=== PATIENT | female | born 1985 | race Caucasian/White ===

== ENCOUNTER → 2021-04-12 09:28 | Outpatient (CLI) | payer OTHER, SELFPAY ==
[2021-04-12 10:07] LABS: Specimen Label Y
== END ==
PROVIDERS: PCP Family Medicine; Referring Provider Specialist; Visit Provider Specialist
DX: O09.521 Supervision of elderly multigravida, first trimester (principal)
CPT/HCPCS: 36415

== ENCOUNTER → 2021-06-23 10:50 | Outpatient (CLI) | payer OTHER, SELFPAY ==
--- NOTE | 2021-06-23 10:54 | DI.US.S_ITS ---
PROCEDURE: US OB >= 14 WEEKS FETUS INDICATIONS: 20 WEEK ANATOMY OUTSIDE/PRIOR DATING DATA: Last menstrual period (LMP): 02/01/2021 LMP-based estimated date of delivery (JAMAL): 11/08/2021. First dating scan (date and location): 04/12/2021. Estimated date of delivery (JAMAL) from first dating scan: 11/02/2021. The calculations are made using the ultrasound JAMAL of 11/02/2021. TECHNIQUE: Real-time scanning was performed of the fetus, with image documentation and biometric measurements. COMPARISON: [facility], , US OB <= 14 WEEKS FETUS, 04/12/2021, 8:57. FINDINGS: General: A single living intrauterine gestation is present. Presentation: Transverse. Placenta: Placental position is anterior , without previa. Amniotic fluid index: 15.2 cm, normal range is 5-24 cm. heart rate: 147 beats per minute. Maternal cervical canal: 5.8 cm long. Normal lower limit is 2.5 cm. biometrics: Biparietal diameter: 22 weeks 0 days Head circumference: 21 weeks 4 days Abdominal circumference: 21 weeks 6 days Femur length: 21 weeks 6 days Clinically estimated gestational age: 21 weeks 1 day Composite gestational age from present scan: 21 weeks 6 days Estimated weight and percentile: 455 g; 81st percentile. Anatomic survey: Neuro: Ventricles are non-dilated at less than 10 mm. Cisterna magna is normal at 3-11 mm. Cerebellum is normal in size and morphology. Nuchal skin fold: Normal at less than 6 mm between 14-21 weeks gestational age. Face: Nose and lips, facial profile are normal. Spine: No evidence for spina bifida. Heart: 4-chambered heart is present, with normal ventricular outflow tracts. Diaphragm: Diaphragm is intact. Stomach: Left-sided stomach is present. Kidneys: No hydronephrosis. Normal is less than 5 mm in 2nd trimester, less than 7 mm in 3rd trimester. Cord: 3-vessel cord has orthotopic insertion. Bladder: Normal in size. Extremities: All 4 extremities identified. IMPRESSION: 1. Single living IUP redemonstrated and interval growth is normal. 2. Normal anatomic survey. We strive to produce accurate, complete, and clear reports of imaging services. To assist us in improving patient care, this report was composed using standard report templates and voice recognition software. Therefore, it may contain abnormal punctuation, insertions and/or omissions. Occasional wrong-word or sound-alike substitutions may occur. Though we review the report and make efforts to correct it, we do recommend that the report be read carefully in proper context to recognize any text inaccuracies. Dictated by: Anthony MONACO Interpreted: Sue Mosqueda MD on 06/23/2021 at 12:09 Transcribed by: CRISTOFER on 06/23/2021 at 12:10 Approved by: Sue Mosqueda MD, PhD on 06/23/2021 at 12:42
[2021-06-23 12:55] LABS: Appearance Urine UA CLEAR; Bilirubin Urine UA NEGATIVE (NEGATIVE); Color Urine UA YELLOW; Glucose Urine UA NEGATIVE (Negative); Ketones Urine UA NEGATIVE (NEGATIVE); Leukocyte Esterase Urine UA NEGATIVE (NEGATIVE); Nitrite Urine UA NEGATIVE (Negative); Occult Blood Urine UA TRACE-INTACT (Negative); Protein Urine UA NEGATIVE (Negative); Specific Gravity Urine UA <=1.005 (1.000-1.035); Urobilinogen Urine UA 0.2 E.U./dL (0.2)
== END ==
PROVIDERS: PCP Family Medicine; Referring Provider Specialist; Visit Provider Specialist
DX: Z34.82 Encounter for supervision of other normal pregnancy, second trimester (principal); Z3A.21 21 weeks gestation of pregnancy
CPT/HCPCS: 36415; 76811; 81003

== ENCOUNTER → 2021-10-12 10:37 | Outpatient (CLI) | payer OTHER, SELFPAY ==
[2021-10-13 08:00] LABS: Strep Grp B PCR POS for Grp B Strep
== END ==
PROVIDERS: PCP Family Medicine; Visit Provider Obstetrics & Gynecology
DX: Z34.82 Encounter for supervision of other normal pregnancy, second trimester (principal); Z3A.36 36 weeks gestation of pregnancy
CPT/HCPCS: 87653

== ENCOUNTER 2021-10-12 11:20 | Outpatient (CLI) | payer OTHER, SELFPAY | END 2021-10-12 12:03 | disposition home or self-care (01) | LOC: LABOR 12:08 → OB 10-18 08:26 | PROVIDERS: PCP Family Medicine; Referring Provider Obstetrics & Gynecology; Visit Provider Obstetrics & Gynecology | DX: O09.523 Supervision of elderly multigravida, third trimester (principal); Z3A.36 36 weeks gestation of pregnancy | CPT/HCPCS: 59025; 87653; G0378; G0379 ==

== ENCOUNTER 2021-10-19 11:10 | Outpatient (CLI) | payer OTHER, SELFPAY ==
[2021-10-19 11:52] VITALS: BP 122/60; PULSE 69; RESP 20; TEMP 36.7
== END 2021-10-19 11:55 | disposition home or self-care (01) ==
LOC: OB 10-20 14:25
PROVIDERS: PCP Family Medicine; Referring Provider Obstetrics & Gynecology; Visit Provider Obstetrics & Gynecology
DX: O43.893 Other placental disorders, third trimester (principal); Z3A.37 37 weeks gestation of pregnancy
CPT/HCPCS: 59025; G0378; G0379

== ENCOUNTER 2021-10-26 11:12 | Outpatient (CLI) | payer OTHER, SELFPAY ==
[2021-10-26 12:08] VITALS: BP 119/58; PULSE 76; RESP 20; TEMP 37.4
== END 2021-10-26 11:55 | disposition home or self-care (01) ==
LOC: LABOR 11:18 → OB 10-27 08:23
PROVIDERS: PCP Family Medicine; Referring Provider Obstetrics & Gynecology; Visit Provider Obstetrics & Gynecology
DX: O43.893 Other placental disorders, third trimester (principal); Z3A.38 38 weeks gestation of pregnancy
CPT/HCPCS: 59025; G0378; G0379

== ENCOUNTER 2021-11-01 19:13 | Inpatient (IN) | payer OTHER, SELFPAY ==
[2021-11-01 19:28] VITALS: BP 140/73
[2021-11-01 20:23] LABS: Add Manual Diff / Slide Review NO; Basophils Absolute Auto 100 /uL (0-100); Basophils Percent Auto 0.5 % (0-2); Eosinophils Absolute Auto 200 /uL (0-450); Eosinophils Percent Auto 2.1 % (2-4); Hematocrit 35.5 % (36-46); Hemoglobin 11.9 g/dL (12.0-16.0); Lymphocytes Absolute Auto 1900 /uL (1100-4500); Lymphocytes Percent Auto 20.1 % (25-40); Mean Corpuscular HGB Conc 33.6 % (30-36); Mean Corpuscular Hemoglobin 28.1 PG (26-34); Mean Corpuscular Volume 83.7 fL (80-100); Monocytes Absolute Auto 700 /uL (0-900); Monocytes Percent Auto 7.2 % (3-14); Neutrophils Absolute Auto 6700 /uL (1500-7000); Neutrophils Percent Auto 70.1 % (50-75); Platelet Count 199 X10^3/uL (150-400); Red Blood Cell Count 4.24 X10^6/uL (4.0-5.2); Red Cell Distribution Width 14.7 % (11.6-14.8); White Blood Cell Count 9.5 X10^3/uL (4.5-11.0)
[2021-11-01] MEDS: DINOPROSTONE VAG (CERVIDIL) 10 MG VAG (20:39)
[2021-11-01 20:50] LABS: COVID19 -Nasal RAPID Negative (Negative)
--- NOTE | 2021-11-01 21:21 | PM.OBHP.1 ---
OB HPI Date/Time Date of admission: 11/01/21 Date Patient Seen: 10/26/21 History of Present Condition Chief complaint: observation of labor : 2 Para: 0 Estimated Date of Delivery: 11/08/21 Estimated Gestational Age (weeks): 39 Narrative: Masoud Rosenberg is a 36 year old female who is being admitted at 39 weeks for IOL due to early grade 3 placenta. Some placental calcifications were already seen at 28 weeks and by 34 weeks she had a grade 3 placenta. She has had normal growth by ultrasound, estimated weight at 34 weeks was 83 percentile. testing has been normal. without any other complications. She denied headache, scotomata, nausea vomiting or abdominal pain. No leakage of fluid or vaginal bleeding. Feeling occasional contraction. Indications Indication for induction OB: other History of Present care: good care Dating criteria: LMP confirmed by 1st trimester US Obstetrical complications: other ( Early grade 3 placenta) Medical complications: none Preadmission Labs Blood type: A (+) positive -: Antibody screen: negative, GBS status: positive, HBsAG: negative, HIV: negative and RPR/VDLR: negative -: Chlamydia screen: not detected and Gonorrhea screen: not detected -: Rubella: immune and Varicella: immune HCAB: negative PAP: Normal Cell-free DNA: low risk ,male MSAFP normal 1 hr GTT: 135 Prior (ies) History: Sab Evaluation Evaluation Baseline heart rate: 135 Variability: Average (6-10) monitor accelerations: Present Monitor Decelerations: Variable (rare) Category of Tracing: Reactive Status: Category l Dilation: 1-2 cm Effacement: 0-30% station: -2 Position of cervix: posterior Consistency: medium Toussaint score: 3 PFSH Medical History Abnormal Pap smear of cervix (~2004) Acne (~1997) Allergies (~1989) Asthma (~2003) Chicken pox Spontaneous Surgical History History of tonsillectomy (~2000) Family History (Updated 03/27/21 @ 21:49 by Latasha Flores) Father Diabetes mellitus Hypertension Hyperlipidemia Overweight Mother Overweight Hyperlipidemia Grandfather Cancer Grandmother Glaucoma Stroke Skin cancer Grandfather Drowning Grandmother History of heart disease Hypertension Breast cancer Diabetes mellitus Social History marital status: number of children: 0 household members: spouse lives independently: Yes caregiver/support person: Yes housing: house pets and animals: Yes (Cats understood Toxo) education level: college occupational status: employed current occupational exposures/hazards: No seatbelt use: always water heater temp set < 120 deg: Yes working smoke detector in home: Yes fire extinguisher in home: Yes carbon monox detector in home: Yes firearms in home: No do you feel safe at home: Yes Smoking Status: Never smoker second hand exposure: No alcohol intake: former (social prior to ) substance use type: marijuana (Non ) during the past year weight has: remained stable well-balanced diet: daily or most days daily servings fruits/ve-4 caffeine: Yes (Kumbocha) Type(s) of exercise: walking, weight lifting and additional Meds Home Medications and Allergies Home Medications Medication Instructions Recorded Confirmed Type albuterol sulfate 90 mcg/actuation 2 puff inhalation Q6H PRN 12/02/20 11/01/21 History aerosol inhaler Shortness Of Breath Or Wheezing budesonide-formoterol HFA 80 2 puff inhalation Q12H PRN 12/02/20 11/01/21 History mcg-4.5 mcg/actuation aerosol Shortness Of Breath Or Wheezing inhaler (Symbicort) prenat.vits,luis,idq-[id number] 1 tab PO DAILY 04/11/21 11/01/21 History Makers Tripple Nipple Breast Cream See Rx Instructions .Route 09/15/21 11/01/21 Rx .COMPLEX #30 grams Allergies Allergy/AdvReac Type Severity Reaction Status Date / Time Sulfa (Sulfonamide AdvReac Intermediate muscle Verified 11/01/21 20:20 Antibiotics) spasms OB Exam Narrative Exam Narrative: VS: initial BP 143/76, repeat 134/76 Pulse 90 Afebrile HENMT Head: normal to inspection and normocephalic Resp Effort & Inspection: normal respiratory effort Cardio Rate: regular rate Extremities Lower extremity: Yes edema (1+) Uterus Location (Fundal Height): 39 Presentation: vertex Estimated Weight (lbs): 8 Objective Labs Result Diagrams: 11/01/21 20:05 11/01/21 21:40 Labs: Laboratory Results - last 24 hr 11/01/21 11/01/21 20:05 20:05 WBC 9.5 RBC 4.24 Hgb 11.9 L Hct 35.5 L MCV 83.7 MCH 28.1 MCHC 33.6 RDW 14.7 Plt Count 199 Neut % (Auto) 70.1 Lymph % (Auto) 20.1 L [place] % (Auto) 7.2 Eos % (Auto) 2.1 Baso % (Auto) 0.5 Neut # (Auto) 6700 Lymph # (Auto) 1900 [place] # (Auto) 700 Eos # (Auto) 200 Baso # (Auto) 100 SARS-CoV-2 (PCR) Negative Assessment and Plan Assessment and Plan Assessment and Plan narrative: 36 yo @ 39 week EGA being admitted for induction of labor due to early grade 3 placenta. GBS+ screen -Admit. -Routine labs. CMP and urine protein/creatinine ratio added due to initial SBP 140. She was somewhat expectedly anxious arriving for induction per RN Follow-up BP was normal -Overall category 1 EFM, rare quick variable deceleration, overall reassuring EFM andd reactive NST. Cervidil to be placed for induction. -PCN for GBS prophylaxis with labor or SROM
[2021-11-01 21:59] LABS: Uric Acid 4.5 mg/dL (2.5-6.2)
[2021-11-01 22:01] LABS: Alanine Aminotransferase 24 IU/L (<35); Albumin 3.4 g/dL (3.5-5.0); Albumin Globulin Ratio 1.2 (1.0-2.8); Alkaline Phosphatase 96 U/L (38-126); Aspartate Aminotransferase 29 IU/L (14-36); Bilirubin Total 0.2 mg/dL (0.2-1.3); Blood Urea Nitrogen 9 mg/dL (7-17); Calcium 8.9 mg/dL (8.4-10.2); Carbon Dioxide 18 mmol/L (22-32); Chloride 108 mmol/L (98-107); Estimated Glomerular Filt Rate > 60 mL/min (>60); Globulin 2.8 g/dL (1.7-4.1); Glucose 100 mg/dL (70-100); HEMOLYSIS < 15 (0-50); Potassium 3.7 mmol/L (3.4-5.1); Sodium 135 mmol/L (137-145); Total Protein 6.2 g/dL (6.3-8.2)
[2021-11-01 22:41] LABS: Creatinine Urine Random 58.1 mg/dL; Protein (Total) Urine Random 11 mg/dL (0-12); Protein Creatinine Ratio Urine 0.18 GRAM/24H
--- NOTE | 2021-11-02 | PATH_ITS ---
[facility] Accession Number: [id number] . 01 Material submitted: . placenta - PLACENTA . 01 Clinical history: . OBSERVATION OF LABOR . 01 Diagnosis: Placenta: 533.0 gram intact alan placenta with features of maturation consistent with third trimester gestational age and with accentuation of syncytial knots and scattered dystrophic calcification (nonspecific finding). Eccentrically inserted three-vessel umbilical cord; no funisitis, thrombi or true knots. Unremarkable membranes; no chorioamnionitis or features of meconium staining. Placental parenchyma with scattered dystrophic calcifications. No evidence of villitis, infarcts, or features of abruption. MRV 11/07/2021 1304 Local . 01 Electronically signed: . Delores Garcia MD, Pathologist NPI- [id number] . 01 Gross description: . Received in formalin, labeled with the patient's name and placenta, and consists of a 533 g, 27.7 x 14.9 x 2.8 cm, ovoid alan placenta. The membranes are kim and translucent with no discoloration, insert at the margin, and have a point of rupture at the placental disc margin. The umbilical cord segment measures 43.5 cm in length and averages 1.0 cm in diameter with left coiling that has a coiling index of approximately 1.5 twists per 5 cm. The umbilical cord is trivascular with no knots identified and insertion point that is located eccentrically 3.9 cm from the free edge of the placenta. The surface is blue-donohue with normal arborizing vasculature and no areas of discoloration identified. The maternal surface is apparently intact with diffuse kim, granular areas across the surface occupying approximately 20%. Serial sectioning reveal the kim, granular areas on the maternal surface to extend into the parenchyma around the periphery, and this occupies approximately 10% of the cut surface. No additional lesions are identified. Digital Advisor sections are submitted as follows: A1: Membrane roll. A2: Digital Advisor cord. A3: Full-thickness central section. A4: Maternal discoloration with extension into parenchyma. ([id number]) /FRR 11/05/2021 0849 Local . 01 Pathologist provided ICD-10: O43.90 . 01 CPT . 866496 Specimen Comment: A courtesy copy of this report has been sent to [facility] Performed at: 01 [facility] [address] [place] [address], [place], [place] [id number] MD Darren West MD Phone: [phone]
--- NOTE | 2021-11-02 09:49 | PM.OBPNLAB ---
Date/Time Date Patient Seen: 11/02/21 Time Patient Seen: 07:45 Pain Control Pain control: tolerating well Comments: Not feeling any contractions currently with the Cervidil. Cervidil still in place, due for removal at 9:00 a.m.. Currently only having rare contraction, q 20 minutes, with uterine irritability in between. She slept some last night, slept less well due to different bed, not due to contractions. No leakage of fluid or vaginal bleeding. Pelvic Exam Dilation (cm): 1 Effacement (%): 25 station: -2 Amniotic membrane status: Intact Comments: Cervidil left in place after exam. Due for removal in 1 hour. Contractions Contractions on admission: irregular Contraction frequency (min): 20 Contraction pattern: Irregular Contraction phase: Resting Contraction intensity: Mild Status status: Category l Heart Rate Baseline: 130 Monitor Accelerations: Present Monitor Decelerations: Absent Monitor Variability: Moderate Comments: Rare quick variable deceleration overnight, currently no decelerations, category 1. Assessment and Plan Assessment: induction ongoing Comments: Removed Cervidil in 1 hour, when due. After 1 hour, then start trial of Pitocin for induction of labor. I discussed with her trial of Pitocin rather than going to Cytotec for additional cervical ripening, due to its occasional quick variable deceleration overnight. Discussed I'd recommend start with trial of Pitocin since this can be turned off if FHR developed concerning decelerations versus Cytotec pill that is absorbed in the system and then lasts for few hours. She was agreeable to trial of Pitocin. Consent form for induction reviewed and signed.
[2021-11-02] MEDS: OXYTOCIN PREMIX 30 UNIT/500 ML PLAST..BAG IV (09:57)
[2021-11-02] MEDS: LACTATED RINGERS 1,000 ML 100 ML IV ×2 (09:57→18:42)
--- NOTE | 2021-11-02 13:27 | PM.OBPNLAB ---
Date/Time Date Patient Seen: 11/02/21 Time Patient Seen: 13:20 Pain Control Pain control: tolerating well Comments: Feeling crampy since the Pitocin started, nothing strong. Not feeling distinct contractions. She was on the birthing ball, going to try to take a rest, nap currently. Cervix not re-checked at this time with no signs of labor. Preeclamptic labs had been added to her initial OB labs yesterday due to initial SBP on presentation of 140 which then normalized. BP has remained normal. Denies headache, vision changes, abdominal pain besides lower cramping, nausea or vomiting. Pelvic Exam Dilation (cm): 1 Effacement (%): 25 station: -2 Amniotic membrane status: Intact Contractions Contractions on admission: regular Monitor mode: External Pitocin rate (mU/min): 10 Contraction frequency (min): 4 Contraction pattern: Regular (q 3-4 minutes) Contraction phase: Resting Contraction intensity: Mild Status status: Category l Heart Rate Baseline: 130 Monitor Accelerations: Present Monitor Decelerations: Absent Monitor Variability: Moderate Assessment and Plan Assessment: induction ongoing Plan: continuous present management Comments: Continue Pitocin.
--- NOTE | 2021-11-02 18:29 | P.PNOB_ITS ---
Date/Time Date Patient Seen: 11/02/21 Time Patient Seen: 17:50 Pain Control Pain control: tolerating well Comments: becoming mildy uncomfortable with the contractions Pelvic Exam Dilation (cm): 1 Effacement (%): 25 station: -2 Amniotic membrane status: Intact Contractions Monitor mode: External Pitocin rate (mU/min): 16 Contraction frequency (min): 4 Contraction pattern: Regular (q 3-4 minutes) Contraction phase: Resting Contraction intensity: Mild Status status: Category l Monitor Accelerations: Episodic Monitor Decelerations: Episodic Monitor Variability: Moderate Comments: After using bathroom and then lying for the exam, FHR with minimal variability and some recurrent variable decelerations after the exam, improved with position change Assessment and Plan Assessment: induction ongoing Comments: Patient starting to become uncomfortable with contractions. Discussed giving it a few more hours with Pitocin, approximately 2 more hours and see if she develops labor. If no labor then discussed turning Pitocin off and repeat cervi luis ripening overnight. She is agreeable.
--- NOTE | 2021-11-02 20:03 | PM.PREOP ---
Pre-operative Note COVID-19 COVID-19 status: Negative Result date/Date tested (Pos, Neg/Pending): 11/01/21 Criteria for continued procedure: Delay expected to result in less-positive ultimate med/surg outcome Interval Note History & Physical reviewed/Exam performed by Physician: Yes Changes to H&P: No H&P completed within 30 days and has changed as indicated here:: No changes to maternal medical history/exam. heaert rate with recurrent declerations with contractions, Cat 2 EFM remote from delivery. Discussed, consented to C section.
[2021-11-02] MEDS: CEFAZOLIN 1 GM VIAL 2 GM IV (20:21)
--- NOTE | 2021-11-02 20:26 | SUR.OPER ---
Supine on padded OR bed, head on pillow, arms secured on padded arm boards at <90 degrees abduction, legs uncrossed, safety belt at thigh, tape over blanket over lower legs. POPSITION APPROVED BY SURGEON AND ANESTHESIA
--- NOTE | 2021-11-02 21:04 | SUR.OPER ---
LIVE BABY BOY TOB 2040. CORD BLOOD AND BABY TO L&D WITH OB RN AND DAD.
[2021-11-02 22:05] VITALS: BP 114/71; PULSE 70; RESP 16; TEMP 36; O2SAT 97
[2021-11-02 22:10] VITALS: BP 124/83; PULSE 74; RESP 18; O2SAT 98
[2021-11-02 22:15] VITALS: BP 124/76; PULSE 84; RESP 21; O2SAT 97
[2021-11-02 22:20] VITALS: BP 115/71; PULSE 75; RESP 20; TEMP 36.2; O2SAT 98
--- NOTE | 2021-11-02 22:36 | P.PNOB_ITS ---
Date/Time Date Patient Seen: 11/02/21 Time Patient Seen: 19:10 Pain Control Pain control: tolerating well Comments: Only feeling mild contractions Pelvic Exam Dilation (cm): 1 Effacement (%): 50 station: -2 Amniotic membrane status: Intact Contractions Monitor mode: External Contraction frequency (min): 4 Contraction pattern: Regular (q 3-4 minutes) Contraction phase: Resting Contraction intensity: Mild Status status: Category l Monitor Accelerations: Absent Monitor Decelerations: Recurrent Monitor Variability: Moderate Comments: F HR developed recurrent moderate to severe variable deceleration with late component. Position change from sitting to right lateral, without improvement. Patient changed to left lateral Pitocin turned off. Decelerations improved to subtle late decelerations which then resolved. Baseline FHR increased to 170- 180 with minimal variability. With Pitocin off and in left lateral position, FHR recovered with baseline returning to 145 with moderate variability and no further decelerations. Assessment and Plan Assessment: other Plan: Comments: I discuss the repetitive moderate to severe deceleration is with only mild contractions, no active labor. Discussed with heart rate now improved in left lateral position, could give a trial of turning the Pitocin back on in this position, but I suspect decelerations which just recur and she is remote from delivery. Discussed deceleration to have some quality of variable deceleration, cord compression but she is also having late components and some subtle late decelerations this feel the grade 3 placenta is factoring in, with placental insufficiency. Discussed whether cord compression or placental insufficiency as contractions become stronger with a labor contractions, deceleration that would worsen and she is only 1 cm, remote from delivery. Recommend for delivery. She and her briefly discussed this in private, then let me know that they would like to proceed with section. C section procedure reviewed. Surgical risk of bleeding, infection, injury to internal organs including bowel, bladder and risk of injury to baby were reviewed. Written consent obtained. When severe deceleration started, OR was put on hold. OR staff anesthesiologist now notified that we will proceed with section.
--- NOTE | 2021-11-02 22:39 | P.OP_ITS ---
Operative Date/Time/Diagnoses Date of procedure: 11/02/21 Time of procedure: 09:30 Pre-op diagnosis: 39 week , grade 3 placenta, intolerance of labor remote from delivery Post-op diagnosis: same Procedure & Clinicians Procedure: Primary lower transverse section Same procedure as scheduled: Yes Indications: 36-year-old P0 female admitted at 39 weeks for induction of labor due to grade 3 placenta with placental calcifications noted at 28 weeks and progressed to grade 3 placenta. She received Cervidil for cervical ripening and the next morning Pitocin was started for induction. Pitocin gradually increased during the day and EFM category 1, intermittent category 2 with only occasional variable deceleration. However as contractions became mildly uncomfortable, EFM acutely developed repetitive moderate to severe variable decelerations with a late component. Pitocin turned off and changed to left lateral. Deceletions improved to initially subtle late decelerations and then resolved. Discussion held regarding intolerance to even mild contractions, and being remote from delivery, recommend proceeding with due to intolerance of labor. Discussed intolerance to labor likely due to placental insufficiency from the grade 3 placenta, but possibility of cord compression as well. She agreed with proceeding with section for delivery. Surgical procedure and surgical risks reviewed. Written consent obtained. Surgeon: Alexsandra Cantrell Click Yes if Unassisted: Yes Anesthesia Type: Spinal Operative Notes Findings: Vigorous baby boy delivered. with a nuchal cord x1. Less amniotic fluid than expected at delivery. Diffuse placental calcifications. Normal uterus and bilateral tubes and ovaries Closure Type: primary Specimen(s): other (placenta) Estimated Blood Loss (mL): 800 Blood products transfused: none Procedure in detail: IV Fluids: 1200 ml crystalloid Urine output 350ml Description of procedure: She was transferred from the center to the operating room. After an adequate level of spinal anesthesia was obtained, she was placed in the supine position, El catheter was placed and she was prepped and draped in routine sterile fashion. A Pfannenstiel skin incision was made in the lower abdomen and carried down to the level of the fascia. The fascia was incised in the midline and was bluntly extended transversely. The superior and inferior edges of the fascia were elevated and dissected off the rectus muscles with sharp and blunt dissection. The muscles were bluntly in the midline. The parietal peritoneum was elevated, incised and extended bluntly. The bladder blade was placed. The visceral peritoneum was elevated off the lower uterus, incised and the bladder flap was bluntly created. The bladder blade retractor was placed. A transverse incision was made in the lower uterus. The lower uterine segment was thick, consistent with no labor. Part way down into the uterus with the incision she began to have heavy bleeding, likely from a sinus. Each edge of the uterine incision was elevated with Allis clamps and the OR Inez's this suctioned. The incision was further excised down close to the baby and then final entry was made bluntly with a finger. The uterine incision was extended transversely with blunt dissection. A thin layer of membranes was noted over the vertex, were grasped and ruptured with an Allis clamp. Minimal fluid was noted. The head was floating, unengaged. Attempt to deliver the head through the uterine incision with fundal pressure was unsuccessful. A vacuum was placed the vertex and with fundal assistance vertex was minimally brought through the uterine incision and popped off. At this time bandage scissors were used and the uterine incision was further extended transversely. Vacuum was again placed on the vertex and with fundal assistance the infant's head was still not deliver through the uterine incision. Her rectus muscles were tight and coming across the uterine incision as well. Bandage scissors were used and a small cut was made in her rectus muscles transversely, approximately 3 cm noted on later reapproximation. With repeat attempted delivery, with vacuum assistance and fundal pressure the 's vertex was ease through the uterine incision. Vacuum was removed. Nuchal cord x1 was noted which was reduced. Anterior followed by posterior shoulder delivered without difficulty with fundal assistance, followed by the remainder of the body. The infant was vigorous and cried spontaneously. Delayed cord clamping was thus performed. Cord was clamped and cut after 1 minute. was shown to the parents and then handed off to the staff for routine post C- section baby care. Respiratory therapy and OB nurse were present for baby care. Cord blood from the placenta was obtained a specimen. The placenta was expressed with uterine massage. There were calcifications noted throughout the placenta. The uterus was swept clean of adherent clots and membranes. The uterus was closed in 2 layers with 0 Vicryl, the 1st layer being in running locking continuous fashion and the 2nd layer being in a vertical imbricating type fashion. Hemostasis was noted. The tubes and ovaries were inspected and noted to be normal. The paracolic gutters were inspected and wiped free of some minimal residual fluid and blood. The uterine incision was again inspected and hemostasis noted along the incision. The bladder edge peritoneum was inspected and hemostasis was noted. The pelvis was irrigated and suctioned. The muscles were I had incised on her right was reapproximated with 0 Vicryl. There had been some bleeding from the muscle edge and this ceased with the reapproximation. The abdomen was closed. The muscles were reapproximated in th e midline with 2 interrupted sutures of 0 Vicryl. The fascia was closed with running continuous suture of 0 Vicryl. The skin was closed with a subcuticular suture of 4 0 Monocryl. Steri-Strips and sterile Aquacel dressing was placed. She tolerated the procedure well and went to the recovery room in stable condition. Complications: none Post-operative Condition: stable Disposition: PACU Plan for aftercare: transfer to floor
[2021-11-02] MEDS: diphenhydrAMINE 50 MG/ML VIAL 25 MG IV (23:46)
[2021-11-03] MEDS: diphenhydrAMINE 50 MG/ML VIAL 25 MG IV ×3 (02:57→11:27)
[2021-11-03] MEDS: KETOROLAC 30 MG/ML VIAL IV ×3 (04:21→20:48)
[2021-11-03] MEDS: ACETAMINOPHEN 325 MG TABLET 650 MG PO (04:23)
[2021-11-03] MEDS: OXYCODONE/ACETAMINOPHEN 5/325 TABLET 1 TAB PO ×2 (11:27→16:40)
--- NOTE | 2021-11-03 14:00 | PM.OBPN.1 ---
Subjective - OB Subjective Patient comments: pain well controlled, tolerating diet and other (Itching, overall controlled with Benadryl.) baby status: doing well and other (Working on with custom decorating consultant) [place] feeding status: exclusively breast feeding Narrative: Patient was sleeping this morning on morning rounds. Reports she was able to get a few hours of good rest. El pulled at 11:00 a.m., no void yet. Lochia is normal. Date Patient Seen: 11/03/21 Time Patient Seen: 12:40 Exam Vital Signs (past 8 hours): Oxygen Delivery Method Room Air Temp 98.4?F, BP 115/60, pulse 73, respiratory rate 16 Narrative Exam Narrative: General: ?Well-appearing female Abdomen: ?Soft, nontender, nondistended. ?Fundus @U firm, nontender Dressing is dry Extremities: ?1+ pedal edema Objective Labs Result Diagrams: 11/01/21 20:05 11/01/21 21:40 Assessment & Plan Plan day: 1 plan OB: routine postop care Time Spent With Patient Time: Total time spent is greater than 50% in coordination of care (as documented) at patient's floor/unit and/or counseling patient: Time with patient: less than 15 minutes
[2021-11-03] MEDS: BUTORPHANOL 1 MG/ML VIAL 0.5 MG IV (16:39)
[2021-11-03] MEDS: hydrOXYzine pamoate 25 MG CAPSULE PO (21:08)
[2021-11-04] MEDS: IBUPROFEN 600 MG TABLET PO ×2 (03:33→09:05)
[2021-11-04] MEDS: OXYCODONE/ACETAMINOPHEN 5/325 TABLET 1 TAB PO (03:33)
[2021-11-04 06:15] LABS: Add Manual Diff / Slide Review NO; Basophils Absolute Auto 100 /uL (0-100); Basophils Percent Auto 0.6 % (0-2); Eosinophils Absolute Auto 400 /uL (0-450); Eosinophils Percent Auto 3.8 % (2-4); Hematocrit 30.4 % (36-46); Hemoglobin 10.2 g/dL (12.0-16.0); Lymphocytes Absolute Auto 2400 /uL (1100-4500); Lymphocytes Percent Auto 24.2 % (25-40); Mean Corpuscular HGB Conc 33.6 % (30-36); Mean Corpuscular Hemoglobin 28.5 PG (26-34); Mean Corpuscular Volume 84.7 fL (80-100); Monocytes Absolute Auto 900 /uL (0-900); Monocytes Percent Auto 8.9 % (3-14); Neutrophils Absolute Auto 6200 /uL (1500-7000); Neutrophils Percent Auto 62.5 % (50-75); Platelet Count 195 X10^3/uL (150-400); Red Blood Cell Count 3.59 X10^6/uL (4.0-5.2); Red Cell Distribution Width 14.9 % (11.6-14.8); White Blood Cell Count 9.9 X10^3/uL (4.5-11.0)
[2021-11-04] MEDS: DOCUSATE 100 MG CAPSULE 200 MG PO (09:04)
--- NOTE | 2021-11-04 11:46 | P.PNOB_ITS ---
Subjective - OB Subjective Date Patient Seen: 11/04/21 Time Patient Seen: 12:10 Exam Vital Signs (past 8 hours): Oxygen Delivery Method Room Air Temp 98.8F, BP 113/63 Pulse 78 Objective Labs Result Diagrams: 11/04/21 06:08 11/01/21 21:40 Labs: Laboratory Results - last 24 hr 11/04/21 06:08 WBC 9.9 RBC 3.59 L Hgb 10.2 L Hct 30.4 L MCV 84.7 MCH 28.5 MCHC 33.6 RDW 14.9 H Plt Count 195 Neut % (Auto) 62.5 Lymph % (Auto) 24.2 L [place] % (Auto) 8.9 Eos % (Auto) 3.8 Baso % (Auto) 0.6 Neut # (Auto) 6200 Lymph # (Auto) 2400 [place] # (Auto) 900 Eos # (Auto) 400 Baso # (Auto) 100 Assessment & Plan Time Spent With Patient Time: Total time spent is greater than 50% in coordination of care (as documented) at patient's floor/unit and/or counseling patient:
[2021-11-04] MEDS: ACETAMINOPHEN 325 MG TABLET 650 MG PO (13:16)
--- NOTE | 2021-11-04 15:03 | PM.DS.1 ---
History of Present Illness History of Present Illness Date Patient Seen: 11/04/21 Time Patient Seen: 12:30 Chief complaint: induction of labor Narrative: ?36 year old female who is being admitted at 39 weeks for IOL due to early grade 3 placenta.? Some placental calcifications were already seen at 28 weeks and by 34 weeks she had a grade 3 placenta.? She has had normal growth by ultrasound, estimated weight at 34 weeks was 83 percentile.? testing for the grade 3 placenta has been normal. ? without any other complications. Discharge Providers Provider Date of admission: 11/01/21 19:13 Discharge Date: 11/04/21 Primary care physician: Cam Ling DO Consults: 11/02/21 22:56 Consult to Ict Quality Assurance Engineer Routine Comment: Discharge provider: Alexsandra Cantrell MD Summary Hospital Course Discharge Diagnosis: 39 week , delivered by primary section intolerance of labor Hospital Course: Patient was admitted at 39 weeks and underwent cervical ripening with Cervidil. Pitocin was started the next day. As she became mildly uncomfortable with contractions, heart rate began to have moderate to severe deceleration with late component. She was remote from delivery at only 1 cm and section recommended for delivery due to intolerance of even mild contractions. She consented to section. She underwent section without complications. She delivered a vigorous baby boy. She has had a normal postoperative course, meeting all postoperative parameters. Her discomfort is controlled. She had had a lot of diffuse pruritus since shortly after the section due to the Duramorph. After receiving some hydroxyzine last night she reports that the pruritus resolved. Her incisional discomfort is controlled with oxycodone and ibuprofen. she is passing flatus. She is voiding without difficulty. Lochia is normal. is going well. Mother and baby are both doing well and she desires discharge home today. Status at Discharge Cognitive/behavioral status at discharge: oriented Functional status at discharge: independent ambulation Overall status at discharge: patient is progressing back to baseline Time Spent with Patient Time spent: Less than 30 minutes Exam Vital Signs (past 8 hours): Oxygen Delivery Method Room Air Temp 98.8, BP 113/63, Pulse 78 Narrative Exam Narrative: General: Well-appearing female Abdomen: Soft, nontender,except expected madalyn-incisional tendernes, nondistended. Aquacel dressing in place is dry, intact Fundus U-1, firm, nontender Extremities: Trace pedal edema Objective Labs Result Diagrams: 11/04/21 06:08 11/01/21 21:40 Labs: Laboratory Results - last 24 hr 11/04/21 06:08 WBC 9.9 RBC 3.59 L Hgb 10.2 L Hct 30.4 L MCV 84.7 MCH 28.5 MCHC 33.6 RDW 14.9 H Plt Count 195 Neut % (Auto) 62.5 Lymph % (Auto) 24.2 L [place] % (Auto) 8.9 Eos % (Auto) 3.8 Baso % (Auto) 0.6 Neut # (Auto) 6200 Lymph # (Auto) 2400 [place] # (Auto) 900 Eos # (Auto) 400 Baso # (Auto) 100 PFSH Medical History Abnormal Pap smear of cervix (~2004) Acne (~1997) Allergies (~1989) Asthma (~2003) Chicken pox Spontaneous Surgical History History of tonsillectomy (~2000) Family History (Updated 03/27/21 @ 21:49 by Latasha Flores) Father Diabetes mellitus Hypertension Hyperlipidemia Overweight Mother Overweight Hyperlipidemia Grandfather Cancer Grandmother Glaucoma Stroke Skin cancer Grandfather Drowning Grandmother History of heart disease Hypertension Breast cancer Diabetes mellitus Social History marital status: number of children: 0 household members: spouse lives independently: Yes caregiver/support person: Yes housing: house pets and animals: Yes (Cats understood Toxo) education level: college occupational status: employed current occupational exposures/hazards: No seatbelt use: always water heater temp set < 120 deg: Yes working smoke detector in home: Yes fire extinguisher in home: Yes carbon monox detector in home: Yes firearms in home: No do you feel safe at home: Yes Smoking Status: Never smoker second hand exposure: No alcohol intake: former (social prior to ) substance use type: marijuana (Non ) during the past year weight has: remained stable well-balanced diet: daily or most days daily servings fruits/ve-4 caffeine: Yes (Kumedilberto) Type(s) of exercise: walking, weight lifting and additional Discharge Assessment & Plan Assessment and Plan Assessment: POD 2 s/p primary section for intolerance to labor normal postoperative course Plan of Treatment: Discharge home. Appointment in 1 week to remove Aquacel dressing and incision check. Discharge Plan Discharge Plan Patient Disposition: Home Provider Discharge Comment: Pt s/p primary section for delivery for intolerance of labor Discharge orders & Medications Prescriptions: New ibuprofen 600 mg Tablet 600 mg PO Q6HR PRN (Reason: Pain, Mild (1-3)) Qty: 30 1RF Purelan Cream 1 applic topical PRN PRN (Reason: Sore Nipples) Qty: 7 0RF oxycodone 5 mg tablet See Rx Instructions .ROUTE .COMPLEX PRN (Reason: pain) Qty: 20 0RF Rx Instructions: 1 to 2 tabs every 4 to 6 hours as needed for pain docusate sodium 100 mg Capsule 100 mg PO DAILY Qty: 20 0RF Rx Instructions: take 1 to 2 capsules daily while on the oxycodone Continued prenat.vits,luis,[id number] Tablet 1 tab PO DAILY Makers Tripple Nipple Breast Cream See Rx Instructions .ROUTE .COMPLEX Qty: 30 3RF Rx Instructions: Apply to nipples after a feeding up to four times a day. Wipe off before next feeding; albuterol sulfate 90 mcg/actuation HFA aerosol inhaler 2 puff inhalation Q6H PRN (Reason: Shortness Of Breath Or Wheezing) budesonide-formoterol [Symbicort] 80-4.5 mcg/actuation HFA aerosol inhaler 2 puff inhalation Q12H PRN (Reason: Shortness Of Breath Or Wheezing) Follow up/Referrals: Alexsandra Cantrell MD [Physician] - 11/09/21 3:00 pm (Rescheduled appointment to 11/08 at 1345.) Cam Ling DO [Primary Care Provider] - Discharge Health Status Multidrug resistant organism: No MDRO Diet/Activity/Treatments Diet: Regular Activity: nothing in the Vagina for 6 weeks, no tampons, no douching and no intercourse. No heavy lifting for 6 weeks, nothing heavier than the baby and baby carrier. I recommend taking a stool softener daily while you are on the oxycodone, Colace or generic equivalent 1-2 tablets daily. Skin/Wound/Dressing Care Report to your healthcare provider any signs of infection, such as:: chills, fever, increased pain and unusual redness Dressing: Leave dressing on. May shower with the dressing in place. It will be removed in the office in 1 week. Visit Report/Discharge Packet Instructions: DI for , DI for Depression Stand Alone Forms: Discharge: Care Discharge Data Primary Care Provider: Cam Ling
[2021-11-04 18:28] VITALS: BP 115/71; PULSE 75; RESP 20; TEMP 36.2
== END 2021-11-04 16:00 | disposition home or self-care (01) | DRG 788 ==
PROVIDERS: Admitting Provider Obstetrics & Gynecology; PCP Family Medicine; Referring Provider Obstetrics & Gynecology; Visit Provider Obstetrics & Gynecology
PROC: 10D00Z1 Extraction of Products of Conception, Low, Open Approach (ICD-10-PCS; CPT 59514; principal; 2021-11-02 20:00)
DX: O43.893 Other placental disorders, third trimester (principal); O76 Abnormality in fetal heart rate and rhythm complicating labor and delivery; O99.824 Streptococcus B carrier state complicating childbirth; Z3A.39 39 weeks gestation of pregnancy; Z37.0 Single live birth; Z20.822 Contact with and (suspected) exposure to COVID-19
CPT/HCPCS: 36415; 59050; 59200; 59510; 59515; 80053; 82570; 84156; 84550; 85025; 86850; 86900; 86901; 87635; C9803; A9270; G0379; J0595; J0690; J1200; J1885; J2274; J2405; J2590

== ENCOUNTER → 2023-01-16 10:50 | Outpatient (CLI) | payer OTHER, SELFPAY ==
[2023-01-16 14:36] LABS: Urine N gonorrhoeae NOT DETECTED
[2023-01-16 14:37] LABS: Urine Chlamydia NOT DETECTED
== END ==
PROVIDERS: PCP Family Medicine; Visit Provider Obstetrics & Gynecology
DX: Z34.91 Encounter for supervision of normal pregnancy, unspecified, first trimester (principal)
CPT/HCPCS: 87491; 87591

== ENCOUNTER → 2023-02-15 11:01 | Outpatient (CLI) | payer OTHER, SELFPAY ==
[2023-02-15 12:49] LABS: Add Manual Diff / Slide Review NO; Basophils Absolute Auto 0 /uL (0-100); Basophils Percent Auto 0.3 % (0-2); Eosinophils Absolute Auto 200 /uL (0-450); Eosinophils Percent Auto 3.1 % (2-4); Hematocrit 35.9 % (36-46); Hemoglobin 12.3 g/dL (12.0-16.0); Lymphocytes Absolute Auto 1600 /uL (1100-4500); Lymphocytes Percent Auto 19.3 % (25-40); Mean Corpuscular HGB Conc 34.2 % (30-36); Mean Corpuscular Hemoglobin 28.6 PG (26-34); Mean Corpuscular Volume 83.9 fL (80-100); Monocytes Absolute Auto 500 /uL (0-900); Monocytes Percent Auto 5.8 % (3-14); Neutrophils Absolute Auto 5800 /uL (1500-7000); Neutrophils Percent Auto 71.5 % (50-75); Platelet Count 215 X10^3/uL (150-400); Red Blood Cell Count 4.28 X10^6/uL (4.0-5.2); Red Cell Distribution Width 13.8 % (11.6-14.8); White Blood Cell Count 8.1 X10^3/uL (4.5-11.0)
[2023-02-15 18:16] LABS: Hepatitis B Surface Antigen NEGATIVE s/c (NEGATIVE); Rubella Antibody IgG 27.2 IU/mL (>15)
[2023-02-15 18:31] LABS: HIV 1 & 2 Ab/Ag 4th Gen Combo NEGATIVE (NEGATIVE); Hep C Virus Ab w/Reflex Quant NEGATIVE s/c (NEGATIVE)
[2023-02-16 08:44] LABS: Varicella IgG Antibody 2992 index (Immune >165)
[2023-02-17 04:53] LABS: RPR Screen Non Reactive (Non Reactive)
== END ==
PROVIDERS: PCP Family Medicine; Referring Provider Obstetrics & Gynecology; Visit Provider Obstetrics & Gynecology
DX: O09.521 Supervision of elderly multigravida, first trimester (principal); Z34.80 Encounter for supervision of other normal pregnancy, unspecified trimester
CPT/HCPCS: 36415; 80055; 86787; 86803; 86850; 86900; 86901; 87086; 87389

== ENCOUNTER → 2023-03-22 10:01 | Outpatient (CLI) | payer OTHER, SELFPAY ==
[2023-03-24 20:35] LABS: Insulin Dep Diabetes No (.); OSBR Risk 1IN 5748 (.); Results Report (.); Test Results *Screen Negative* (.)
== END ==
PROVIDERS: PCP Family Medicine; Referring Provider Obstetrics & Gynecology; Visit Provider Obstetrics & Gynecology
DX: Z34.82 Encounter for supervision of other normal pregnancy, second trimester (principal); Z3A.18 18 weeks gestation of pregnancy
CPT/HCPCS: 36415; 82105

== ENCOUNTER 2023-07-19 10:58 | Outpatient (CLI) | payer OTHER, SELFPAY ==
--- NOTE | 2023-07-19 11:34 | PM.OBTRLD ---
Visit Information Visit Information Date of evaluation: 07/19/23 Primary OB Provider: Esthela Love Reason for Evaluation: Yes non-stress test non-stress test reason: other (Placenta previa) [facility] Medical History (Updated 06/28/23 @ 01:24 by Rachel Lancaster MD) LGA (large for gestational age) fetus affecting mother, antepartum Placental abnormality in third trimester Spontaneous Abnormal Pap smear of cervix (~2004) Acne (~1997) Chicken pox Surgical History (Updated 01/28/23 @ 22:01 by Rachel Lancaster MD) History of removal of skin mole History of tonsillectomy (~2000) Family History (Updated 01/10/23 @ 08:37 by Tiki Crawley RN) Father Diabetes mellitus Hypertension Hyperlipidemia Overweight Mother Overweight Hyperlipidemia Grandfather Lung cancer Grandmother Glaucoma Stroke Skin cancer Grandfather Drowning Grandmother Hypertension Breast cancer Diabetes mellitus Social History marital status: number of children: 1 household members: spouse and children lives independently: Yes caregiver/support person: Yes housing: house pets and animals: Yes (Cats, will manage litter box) education level: college (bachelor's degree) occupational status: employed (works from home) current occupational exposures/hazards: No special agnes needs: No travel history: recent ([place], [place], planning [place] in May) seatbelt use: always helmet use: No (encouraged to use helmet when skiing) water heater temp set < 120 deg: Yes working smoke detector in home: Yes fire extinguisher in home: Yes carbon monox detector in home: Yes firearms in home: No do you feel safe at home: Yes Smoking Status: Former smoker (MJ only, quit 2020) second hand exposure: No alcohol intake: former (3-5/week when not ) substance use type: marijuana (Not anymore) during the past year weight has: other (back to ~5lb over pre-baby weight) well-balanced diet: daily or most days daily servings fruits/ve or more times/day caffeine: No Type(s) of exercise: walking, weight lifting and additional Evaluation Evaluation Baseline heart rate: 140 Variability: Moderate (11-25) monitor accelerations: Present Monitor Decelerations: Absent Contraction Frequency (minutes): 0 Category of Tracing: Reactive Status: Category l Diagnosis, Plan/Disposition Final Diagnosis (1) Placenta previa: Status: Acute Plan/Disposition Plan: Reactive nonstress test OB Disposition: home
== END 2023-07-19 11:39 | disposition home or self-care (01) ==
LOC: OB 07-23 06:07
PROVIDERS: PCP Family Medicine; Referring Provider Specialist; Visit Provider Specialist
DX: O44.03 Complete placenta previa NOS or without hemorrhage, third trimester (principal); Z3A.35 35 weeks gestation of pregnancy
CPT/HCPCS: 59025; G0378; G0379